=== PATIENT | female | born 1975 | race Caucasian/White ===

== ENCOUNTER 2019-07-12 16:53 | Emergency (ER) | payer SELFPAY ==
[2019-07-12 17:13] VITALS: BP 217/118; PULSE 88; RESP 18; TEMP 36.8; O2SAT 99
--- NOTE | 2019-07-12 17:28 | ED.LOWEXIN ---
HPI - Extremity Injury (Lower) General Stated Complaint: legs/swollen/painful/hot to touch Source: patient Mode of arrival: ambulatory Limitations: no limitations History of Present Illness HPI Narrative: 44 y.o. developed a painful pink patch just below the right medial knee 3 days ago. Since then the redness and pain has grown. Today she rates the pain as 6/10, sharp. She's able to walk without pain, but bending the knee or prolonged standing increases the pain. Denies contusion to this area. She is not taking estrogens or recently been immobilized. No hx of cancer. She has no hx of MRSA infections of DVTs. She denies chest pain/SOB. She was treated for abdominal cellulitis 6 months ago with Bactroban and Bactrim with resolution. She no longer takes antihypertensives because she can't afford them. Related Data Allergies Allergy/AdvReac Type Severity Reaction Status Date / Time hydrogen peroxide Allergy Blister Verified 01/18/19 13:20 Review of Systems Constitutional: Constitutional: Reports no additional constitutional complaints Cardiovascular: Cardiovascular: Reports no additional cardiovascular complaints Respiratory: Respiratory: Reports no additional respiratory complaints Gastrointestinal: Gastrointestinal: Denies diarrhea, Denies nausea and Denies vomiting Musculoskeletal: Musculoskeletal: Reports no additional musculoskeletal complaints and Denies myalgias Integumentary/Breasts: Skin/Breast: Reports system reviewed and no additional complaints, except as docu Hematologic/Lymphatic: Hematologic/Lymphatic: Reports no additional hematologic/lymphatic complaints [facility] Past Medical History Medical History (Updated 07/12/19 @ 18:35 by Gideon Duke MD) DIC (disseminated intravascular coagulation) Diverticulitis Hypertension Surgical History Surgical History (Updated 01/20/19 @ 09:09 by Anabel Turner NP) H/O section H/O: hysterectomy History of appendectomy Family History Family History (Updated 07/12/19 @ 18:34 by Gideon Duke MD) Mother Asthma Diabetes mellitus Grandparent DVT (deep venous thrombosis) Social History Social History (Updated 07/12/19 @ 18:34 by Gideon Duke MD) Smoking status: Current every day smoker Exam Const: General: no acute distress Orientation/consciousness: patient oriented x3 Resp: Effort & Inspection: normal respiratory effort Auscultation: clear to auscultation bilaterally Cardio: Rate: regular rate and not tachycardic Rhythm: regular rhythm Heart sounds: no murmurs Skin: Other: edematous, warm, very tender to light tough right medial proximal leg extending to distal medial thigh, total dimensions of 20 cm length x 8 cm width.. Neuro: General: patient oriented x3 and moves all extremities Extrem: Other: No right popliteal or posterior calf tenderness. There is a tender band extending up medial thigh to inguinal area but no redness. No inguinal nodes. No pain with ankle dorsiflexion. No left calf or thigh findings. Course Course Emergency Course: IM Rocephin and Bactrim given for cellulitis. Lovenox given to cover for possible DVT. Vital Signs Vital signs: Vital Signs Temperature 36.8 C 07/12/19 17:13 Pulse Rate 88 07/12/19 17:13 Respiratory Rate 18 07/12/19 17:13 Blood Pressure 217/118 H 07/12/19 17:13 Pulse Oximetry 99 07/12/19 17:13 Temperature 36.8 C 07/12/19 17:13 Pulse Rate 88 07/12/19 17:13 Respiratory Rate 18 07/12/19 17:13 Blood Pressure 217/118 H 07/12/19 17:13 Pulse Oximetry 99 07/12/19 17:13 MDM - Extremity Injury (Lower) MDM Narrative Medical decision making narrative: Swollen, dark pink, tender warm skin strongly suggests cellulitis. D-dimer positive, which could also be from cellulitis. I spoke with Dr. Oliveros who agreed to have patient follow up with him tomorrow after doppler study. Lovenox 1.5 mg/kg ideal body weight given. It is now 6:30 PM. This is the 24
--- NOTE | 2019-07-12 17:40 | PC.NURSE ---
Pt states she is supposed to be taking bp medication, hydrochlorothizide but lost her insurance and has been unable to see a pmd to get it filled.
[2019-07-12] MEDS: cefTRIAXone 1 GM VIAL IM (17:49)
[2019-07-12 17:51] VITALS: BP 159/93; PULSE 80; RESP 18; O2SAT 98
[2019-07-12 17:53] LABS: D Dimer 0.86 mg/L (0.19-0.50)
--- NOTE | 2019-07-12 18:09 | PC.NURSE ---
Pt does not have pmd. EDP wants pt to have o/p stat ultrasound tomorrow morning but pt does not have a pmd to f/u with and get results and/or further treatment. Dr. Oliveros police liaison for [facility]. Dr. Duke spoke with Dr. Oliveros who agrees to see pt tomorrow after completing ultrasound. Pt has ultrasound scheduled for 1030 am.
[2019-07-12] MEDS: ENOXAPARIN 100 MG/ML SYRINGE SUB-Q (18:30)
[2019-07-12] MEDS: hydroCHLOROthiazide 25 MG TABLET PO (18:30)
== END 2019-07-12 18:44 | disposition home or self-care (01) ==
PROVIDERS: Emergency Provider Family Medicine
DX: L03.115 Cellulitis of right lower limb (principal); I10 Essential (primary) hypertension; F17.200 Nicotine dependence, unspecified, uncomplicated
CPT/HCPCS: 36415; 85380; 96372; 99283; 99284; A9270; J0696; J1650

== ENCOUNTER 2019-07-13 10:11 | Outpatient (CLI) | payer SELFPAY ==
--- NOTE | ~2019-07-13 | US_ITS ---
EXAMINATION:US venous doppler LE RT INDICATION:Cellulitis TECHNIQUE: Multiple grayscale, color flow and Doppler images of the right lower extremity deep venous systems were obtained and reviewed. COMPARISON:No prior studies for comparison. FINDINGS: The common femoral, superficial femoral and popliteal veins demonstrate normal respiratory variation, augmentation and compressibility. Color flow is also seen within the posterior tibial, pe roneal, greater saphenous and profunda veins. There is a Harris's cyst right popliteal fossa measuring 1.5 x 1.1 x 1.2 cm. IMPRESSION: 1: No lower extremity deep venous thrombosis. Reviewed, dictated and finalized at location A.
== END 2019-07-13 10:12 | disposition home or self-care (01) ==
PROVIDERS: PCP Internal Medicine; Visit Provider Family Medicine
DX: M79.606 Pain in leg, unspecified (principal)
CPT/HCPCS: 93971

== ENCOUNTER 2023-06-15 08:11 | Emergency (ER) | payer MEDICAID, SELFPAY ==
[2023-06-15] VITALS (34 sets, daily range): BP systolic 133–191; BP diastolic 80–138; PULSE 56–79; RESP 16–18; TEMP 36.2–36.6; O2SAT 93–100
--- NOTE | ~2023-06-15 | CT_ITS ---
EXAMINATION: CTA [facility] DATE: 06/15/2023 10:52 INDICATION: Peripheral arterial disease. Left lower limb pain. TECHNIQUE: Computed tomographic angiography (CTA) of the left lower extremities was performed with 15 0 mL Omnipaque-350 intravenous contrast. Automated exposure control and iterative reconstruction tech [employer]ft[employer] were employed. The dose-length product was 1490.68 mGy-cm. Maximum intensity projection 3D-joy nstructions of the arteries were created by the technologist on a separate workstation. COMPARISON: None. FINDINGS: LEFT LOWER EXTREMITY VASCULATURE: There is no significant stenosis of left common iliac artery, left external iliac artery, left internal controls analyst al iliac artery. There is total occlusion of left common femoral artery. There is reconstitution of f low in left deep femoral artery from collaterals. There is reconstitution of flow in proximal left gonzalez perficial femoral artery. There is no significant stenosis of popliteal artery, tibioperoneal trunk, peroneal artery, or posterior tibial artery. There is total occlusion of distal left anterior tibial artery. ADDITIONAL FINDINGS: There is moderate lumbar spondylosis. There is mild left hip and left knee osteoarthritis. IMPRESSION: 1. 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 2. Total occlusion of distal left anterior tibial artery. Reviewed, dictated and finalized at location A. IMPRESSION: 1. 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 2. Total occlusion of distal left anterior tibial artery.
--- NOTE | ~2023-06-15 | US_ITS ---
EXAMINATION: US venous doppler [facility] DATE: 06/15/2023 08:51 INDICATION: Left lower limb pain and swelling. TECHNIQUE: Grayscale ultrasound images without and with compression and Doppler ultrasound images of the left lower extremity veins were obtained. COMPARISON: None. FINDINGS: The visualized portions of left common femoral vein, profunda (deep) femoral vein, femoral vein, popl iteal vein, peroneal veins, posterior tibial veins, and greater saphenous vein outflow are patent. Th ere is total occlusion of left common femoral artery. IMPRESSION: 1. No deep venous thrombosis. 2. Total occlusion of left common femoral artery. Reviewed, dictated and finalized at location A.
--- NOTE | 2023-06-15 08:15 | PC.NURSE ---
patient states she has been off her medication for about 18 months due to no insurance.
--- NOTE | 2023-06-15 08:16 | ED.EXTPRO ---
HPI - Extremity Problem General Chief complaint: Extremity Problem,Nontraumatic Stated complaint: leg numbness Time Seen by Provider: 06/15/23 08:16 Source: patient Mode of arrival: ambulatory Limitations: no limitations History of Present Illness HPI Narrative: patient is a 48-year-old female with a left lower extremity pain from the mid thigh down to the ankle and foot. This started this morning. She is having some coolness to touch and some tingling of the left lower extremity. Complaint: extremity pain and cold extremity Onset (ago): hour(s) (2) Pain Consistency: constant Location: left Severity scale (1-10): 4 Quality: burning and sharp Radiation: proximal and distal Relieving factors: nothing Exacerbating factors: nothing Associated symptoms: denies other symptoms Related Data Home Medications Medication Instructions Recorded Confirmed hydrochlorothiazide 12.5 mg tablet 12.5 mg PO DAILY 06/15/23 06/15/23 Allergies Allergy/AdvReac Type Severity Reaction Status Date / Time hydrogen peroxide Allergy Blister Verified 06/15/23 08:12 Review of Systems Review of Systems: All systems reviewed & are unremarkable except as noted in HPI and below Constitutional: Constitutional: Reports no additional constitutional complaints Eyes: Eyes: Reports no additional eye complaints ENT: Reports system reviewed and no additional complaints, except as documented Cardiovascular: Cardiovascular: Reports no additional cardiovascular complaints Respiratory: Respiratory: Reports no additional respiratory complaints Gastrointestinal: Gastrointestinal: Reports no additional gastrointestinal complaints Genitourinary: Genitourinary: Reports no additional female genitourinary complaints Musculoskeletal: Musculoskeletal: Reports no additional musculoskeletal complaints Integumentary/Breasts: Skin/Breast: Reports system reviewed and no additional complaints, except as docu Neurologic: Reports system reviewed and no additional complaints, except as documented Psychiatric: Psychiatric: Reports no additional psychiatric complaints Endocrine: Endocrine: Reports no additional endocrine complaints Hematologic/Lymphatic: Hematologic/Lymphatic: Reports no additional hematologic/lymphatic complaints Allergic/Immunologic: Allergic/Immunologic: Reports no additional allergic/immunologic complaints PMFSH Past Medical History Medical History DIC (disseminated intravascular coagulation) Diverticulitis Hypertension Surgical History Surgical History H/O section H/O: hysterectomy History of appendectomy Family History Family History Mother Asthma Diabetes mellitus Grandparent DVT (deep venous thrombosis) Social History Social History Smoking status: Current every day smoker Exam Const: General: healthy appearing Nutritional Appearance: well nourished Orientation/consciousness: patient oriented x3 HENMT: Head: normal to inspection Ears: external ears normal Face/Nose/Sinus: Normal external nose present Eyes: Conjunctivae: conjunctivae normal Pupils: Equal, round and reactive pupils present EOM: EOMs intact bilaterally Neck: Neck: normal visual inspection Chest: Chest palpation & inspection: normal inspection of the chest Resp: Effort & Inspection: normal respiratory effort and not labored Auscultation: clear to auscultation bilaterally Cardio: Rate: regular rate Rhythm: regular rhythm Heart sounds: no murmurs GI: Inspection: non-distended GI Palp: Yes Soft to palpation and No Tenderness to palpation present (GI) Auscultation: normal bowel sounds : General: Yes bladder normal to palpation Back/Spine/Pelvis: Back: no CVA tenderness Skin: General skin exam: normal colo
[2023-06-15 09:58] LABS: Basophils Absolute Auto 0.14 K/mm3 (0.00-0.10); Basophils Percent Auto 1.5 % (0.0-1.0); Eosinophils Absolute Auto 0.18 K/mm3 (0.02-0.50); Eosinophils Percent Auto 1.9 % (1.0-6.0); Hematocrit 42.1 % (35.0-49.0); Hemoglobin 13.9 g/dL (12.0-15.0); Immature Granulocyte Absolute 0.03 K/mm3 (0.00-0.00); Immature Granulocyte Percent A 0.3 % (0.0-0.0); Lymphocytes Absolute Auto 2.23 K/mm3 (1.10-4.50); Lymphocytes Percent Auto 23.2 % (18.0-42.0); Mean Corpuscular Hemoglobin 30.3 pg (27.0-31.0); Mean Corpuscular Volume 91.7 fL (78.0-102.0); Mean Platelet Volume 10.4 fl (9.2-11.8); Monocytes Absolute Auto 0.61 K/mm3 (0.10-0.90); Monocytes Percent Auto 6.3 % (2.0-11.0); Neutrophils Absolute Auto 6.42 K/mm3 (1.70-7.20); Neutrophils Percent Auto 66.8 % (50.0-70.0); Platelet Count Result 245 K/mm3 (150-420); Red Blood Count 4.59 M/mm3 (4.20-5.40); Red Cell Distribution Width 13.8 % (11.6-14.4); White Blood Count 9.6 K/mm3 (4.8-10.8)
[2023-06-15 10:13] LABS: Prothrombin Time 10.9 Seconds (9.50-12.1)
[2023-06-15 10:15] LABS: Alanine Aminotransferase 21 U/L (14-59); Albumin Level 3.7 g/dL (3.4-5.0); Alkaline Phosphatase 77 U/L (46-116); Anion Gap 9 mmol/L (4-12); Aspartate Amino Transferase 11 U/L (15-37); Bilirubin,Total 0.2 mg/dL (0.00-1.00); Blood Urea Nitrogen 13 mg/dL (7-18); Calcium 8.9 mg/dL (8.5-10.1); Carbon Dioxide 29 mmol/L (21-32); Chloride 101 mmol/L (98-108); Estimated CRCL calculation 117 ml/min; Estimated Glomerular Filt Rate > 60; Glucose 99 mg/dL (70-99); Osmolality Calculated 288 mOsm/kg (285-295); Potassium 3.6 mmol/L (3.5-5.1); Sodium 139 mmol/L (136-145); Total Protein 7.2 g/dL (6.4-8.2)
--- NOTE | 2023-06-15 12:19 | ECG_ITS ---
Measurements Intervals [place] Rate: 54 P: 51 NC: 189 QRS: 46 QRSD: 92 T: 67 QT: 453 AVG RR: 1099 QTc: 439 QTCB: 432 QTCF: 438 Interpretive Statements SINUS BRADYCARDIA NONSPECIFIC ST & T WAVE ABNORMALITY BORDERLINE ECG SEE SCANNED COPY FOR SIGNATURE MTDD
--- NOTE | 2023-06-15 12:30 | PC.NURSE ---
[facility] vascular doctor would like patient to go via helicopter to [facility] ER. Patient refuses helicopter and states she will go by ambulance only due to fear of flying.
[2023-06-15] MEDS: HEPARIN SODIUM 5,000 UNITS/ML VIAL 10000 UNITS IV PUSH (12:47)
[2023-06-15] MEDS: HEPARIN SOD/D5W 100 UNITS/ML 25,000 UNITS/250 ML BAG 10 UNITS IV CONT (12:48)
== END 2023-06-15 12:51 | disposition short-term general hospital (02) ==
PROVIDERS: Emergency Provider Emergency Medicine; PCP Internal Medicine
DX: I77.1 Stricture of artery (principal); I73.9 Peripheral vascular disease, unspecified; I10 Essential (primary) hypertension; F17.210 Nicotine dependence, cigarettes, uncomplicated
CPT/HCPCS: 36415; 73706; 80053; 85025; 85610; 85730; 93005; 93971; 96374; 99285; J1644; Q9967